=== PATIENT | female | born 1990 ===

== ENCOUNTER 2017-09-14 21:41 | Emergency (ER) | payer SELFPAY ==
[2017-09-14 21:55] VITALS: BP 106/52
[2017-09-14 22:17] LABS: ABSOLUTE BASOPHILS # (AUTO) 0.1 10^3/uL (0.0-0.2); ABSOLUTE EOSINOPHILS # (AUTO) 0.1 10^3/uL (0.0-0.6); ABSOLUTE LYMPHOCYTES (AUTO) 1.1 10^3/uL (0.5-4.7); ABSOLUTE MONOCYTES (AUTO) 0.8 10^3/uL (0.1-1.4); ABSOLUTE NEUT (AUTO) 3.3 10^3/uL (1.7-8.2); BASOPHILS % (AUTO) 1.4 % (0-2); EOSINOPHILS % (AUTO) 1.5 % (0-6); HEMATOCRIT 37.6 % (36.0-47.0); HEMOGLOBIN 12.3 g/dL (12.0-15.5); LYMPHOCYTES % (AUTO) 19.9 % (13-45); MEAN CORPUSCULAR HEMOGLOBIN 26.6 pg (27.0-33.4); MEAN CORPUSCULAR HGB CONC 32.6 g/dL (32.0-36.0); MEAN CORPUSCULAR VOLUME 81 fl (80-97); MONOCYTES % (AUTO) 15.3 % (3-13); PLATELET COUNT 197 10^3/uL (150-450); RED BLOOD COUNT 4.62 10^6/uL (3.72-5.28); RED CELL DISTRIBUTION WIDTH 19.1 % (11.5-14.0); SEGMENTED NEUTROPHILS % (AUTO) 61.9 % (42-78); TOTAL CELLS COUNTED % (AUTO) 100 %; WHITE BLOOD COUNT 5.3 10^3/uL (4.0-10.5)
[2017-09-14 22:23] LABS: APPEARANCE,URINE CLEAR; BILIRUBIN,URINE NEGATIVE (NEGATIVE); COLOR,URINE YELLOW; GLUCOSE, URINE NEGATIVE (NEGATIVE); KETONES,URINE TRACE mg/dL (NEGATIVE); LEUKOCYTE ESTERASE,URINE NEGATIVE (NEGATIVE); NITRITE,URINE NEGATIVE (NEGATIVE); PROTEIN,URINE NEGATIVE (NEGATIVE); UROBILINOGEN,URINE NEGATIVE mg/dL (<2.0)
[2017-09-14 22:30] LABS: ALANINE AMINOTRANSFERASE 33 U/L (9-52); ALBUMIN 4.2 g/dL (3.5-5.0); ALKALINE PHOSPHATASE 82 U/L (38-126); ANION GAP 13 (5-19); ASPARTATE AMINO TRANSFERASE 42 U/L (14-36); BILIRUBIN,DIRECT 0.2 mg/dL (0.0-0.4); BILIRUBIN,TOTAL 0.2 mg/dL (0.2-1.3); BLOOD UREA NITROGEN 12 mg/dL (7-20); CALCIUM 9.5 mg/dL (8.4-10.2); CARBON DIOXIDE 24 mmol/L (22-30); CHLORIDE 102 mmol/L (98-107); GLUCOSE 86 mg/dL (75-110); LIPASE 64.9 U/L (23-300); POTASSIUM 3.6 mmol/L (3.6-5.0); SODIUM 138.6 mmol/L (137-145); TOTAL PROTEIN 7.1 g/dL (6.3-8.2)
--- NOTE | 2017-09-14 23:36 | ER Document Report ---
ED Medical Screen (RME) - General Chief Complaint: Possible Kidney Stone Stated Complaint: FLANK PAIN Time Seen by Provider: 09/14/17 23:25 TRAVEL OUTSIDE OF THE [place] IN LAST 30 DAYS: No - HPI Notes: 09/14/17 23:34 Patient is a 27-year-old female who presents to the ED complaining of continued pain after being diagnosed with a kidney stone yesterday when at [facility]. Patient states that her morphine IR is not working for her and she needs something stronger. No other concerns or complaints at this time. Denies any drug allergies. Denies any headache, fever, URI, chest pain, palpitations, syncope, cough, shortness of breath, wheeze, dyspnea, abdominal pain, nausea/vomiting/diarrhea, urinary retention, dysuria, hematuria, or rash. I have treated and performed a rapid initial assessment of this patient. A comprehensive ED assessment and evaluation of the patient, analysis of test results and completion of medical decision making process will be conducted by additional ED providers. *I did call and speak with [facility] emergency department. She was found to have a 2 mm renal collecting system stone and was sent home on Flomax, Zofran , and morphine IR. She received 10 mg of ketamine as well as 0.5 mg of Dilaudid while in the ED.* PHYSICAL EXAMINATION: GENERAL: Pt cussing at our nurse. LUNGS: Breath sounds clear to auscultation bilaterally and equal. No wheezes rales or rhonchi. HEART: Regular rate and rhythm without murmurs, rubs, gallops. - Related Data Allergies/Adverse Reactions: No Known Allergies Allergy (Unverified 09/14/17 21:48) Past Medical History - Social History Chew tobacco use (# tins/day): No Frequency of alcohol use: None Drug Abuse: None Renal/ Medical History: Denies: Hx Peritoneal Dialysis Physical Exam - Vital signs Vitals: Temp Pulse Resp BP Pulse Ox 97.9 F 68 22 H 106/52 L 100 09/14/17 21:54 09/14/17 21:54 09/14/17 21:54 09/14/17 21:54 09/14/17 21:54 Course - Vital Signs Vital signs: Temp Pulse Resp BP Pulse Ox 97.9 F 68 22 H 106/52 L 100 09/14/17 21:54 09/14/17 21:54 09/14/17 21:54 09/14/17 21:54 09/14/17 21:54 - Laboratory Result Diagrams: 09/14/17 21:00 09/14/17 21:00 Laboratory results interpreted by me: 09/14/17 09/14/17 09/14/17 21:00 21:00 22:00 MCH 26.6 L RDW 19.1 H Monocytes % 15.3 H AST 42 H Urine Ketones TRACE H
--- NOTE | 2017-09-14 23:53 | ER Document Report ---
ED General - General Chief Complaint: Possible Kidney Stone Stated Complaint: FLANK PAIN Time Seen by Provider: 09/14/17 23:25 TRAVEL OUTSIDE OF THE [place] IN LAST 30 DAYS: No - HPI Notes: Patient is a 27-year-old female who presents to the ED complaining of continued pain after being diagnosed with a kidney stone yesterday when at [facility]. Patient states that her morphine IR is not working for her and she needs something stronger. Patient states that she had one episode prior to arrival where she had a lot of pain in her abdomen and in her right flank that since resolved when she was in the waiting room. No other concerns or complaints at this time. Denies any drug allergies. Denies any headache, fever , URI, chest pain, palpitations, syncope, cough, shortness of breath, wheeze, dyspnea, abdominal pain, nausea/vomiting/diarrhea, urinary retention, dysuria, hematuria, or rash. - Related Data Allergies/Adverse Reactions: No Known Allergies Allergy (Unverified 09/14/17 21:48) Past Medical History - Social History Smoking Status: Current Every Day Smoker Chew tobacco use (# tins/day): No Frequency of alcohol use: None Drug Abuse: None Family History: Reviewed & Not Pertinent Patient has suicidal ideation: No Patient has homicidal ideation: No Renal/ Medical History: Denies: Hx Peritoneal Dialysis Review of Systems - Review of Systems -: Yes All other systems reviewed and negative Physical Exam - Vital signs Vitals: Temp Pulse Resp BP Pulse Ox 97.9 F 68 22 H 106/52 L 100 09/14/17 21:54 09/14/17 21:54 09/14/17 21:54 09/14/17 21:54 09/14/17 21:54 - Notes Notes: PHYSICAL EXAMINATION: GENERAL: Well-appearing, well-nourished and in no acute distress. Comfortable and moves comfortably. Pt is cussing everyone out that enters her room currently. LUNGS: Breath sounds clear to auscultation bilaterally and equal. No wheezes rales or rhonchi. HEART: Regular rate and rhythm without murmurs, rubs, gallops. ABDOMEN: Soft, nondistended abdomen. No guarding, no rebound. No masses appreciated. Normal bowel sounds present. No CVA tenderness bilaterally. + mild epigastric tenderness. Valdivia neg. Musculoskeletal: FROM to passive/active. Strength 5+/5. Extremities: No cyanosis, clubbing, or edema b/l. Peripheral pulses 2+. Capillary refill less than 3 seconds. NEUROLOGICAL: Cranial nerves grossly intact. Normal speech, normal gait. Normal sensory, motor exams PSYCH: angry, normal affect. SKIN: Warm, Dry, normal turgor, no rashes or lesions noted. Course - Re-evaluation Re-evalutation: 09/14/17 23:55 When I entered the room with 1 of our nurses, Rose, patient immediately said that she wants another nurse and does not want this nurse in the room and began cussing. After the nurse left, I was able to talk with the patient about what was going on and what brought her into the emergency department first place. I performed a physical exam on her and found that she had only tenderness in the epigastrium. I was very calm with this patient and did not raise my voice or give her any attitude whatsoever. Advised patient that I would like to start out with a GI cocktail because of her epigastric tenderness. After talking about the GI cocktail, patient states that "you do not understand I was in so much pain before and he does let me sit in the F waiting room." The pain resolved when she was in the waiting room. She went on to discuss how she hated this hospital and everyone that she has come into contact with. Patient became very irate and continued to talk about her care here in the emergency department from arrival by EMS until she now wants to leave [facility]. Patient did not want to hear anything more or anything that I do offer her. She did not bring her medicines with her to this visit. Patient was requesting IV narcotics and pain medication. I was unable to even talk to her about narcotics medications by the time she stood up started getting changed and demanded to get the IV taken out of her arm and she want to leave. I left to go get a nurse at that time to have the IV removed, and when a nurse showed up patient had already left with the IV in her arm. They told me they are going over to [facility] so I called [facility] to give them a heads up at this time. Nurses also called the police department due to the patient leaving with an IV in her arm. From beginning to end of my visit with them, she was cussing and complaining the entire time. - Vital Signs Vital signs: Temp Pulse Resp BP Pulse Ox 97.9 F 68 22 H 106/52 L 100 09/14/17 21:54 09/14/17 21:54 09/14/17 21:54 09/14/17 21:54 09/14/17 21:54 - Laboratory Result Diagrams: 09/14/17 21:00 09/14/17 21:00 Laboratory results interpreted by me: 09/14/17 09/14/17 09/14/17 21:00 21:00 22:00 MCH 26.6 L RDW 19.1 H Monocytes % 15.3 H AST 42 H Urine Ketones TRACE H Discharge - Discharge Clinical Impression: Abdominal pain Qualifiers: Abdominal location: upper abdomen, unspecified Qualified Code(s): R10.10 - Upper abdominal pain, unspecified Condition: Stable Disposition: AGAINST MEDICAL ADVICE
== END 2017-09-15 00:17 | disposition left against medical advice (07) ==
LOC: ER 21:41
DX: N20.0 Calculus of kidney (principal); R10.10 Upper abdominal pain, unspecified; R10.816 Epigastric abdominal tenderness; F17.200 Nicotine dependence, unspecified, uncomplicated; Z53.29 Procedure and treatment not carried out because of patient's decision for other reasons
CPT/HCPCS: 36415; 80053; 81001; 83690; 84703; 85025; 99284